=== PATIENT | male | born 1995 | race Caucasian/White ===

== ENCOUNTER 2019-02-03 07:23 | Day surgery (SDC) | payer OTHER ==
[2019-02-03] MEDS ORDERED: CEFAZOLIN 2 GM/50 ML (PMX) 50 ML IVPB (08:00)
[2019-02-03] MEDS: SOD CHLORIDE 0.9% 1,000 ML IV (08:11)
[2019-02-03] MEDS ORDERED: ONDANSETRON 4 MG INJ IV (11:30)
[2019-02-03] MEDS ORDERED: TRIMETHOBENZAMIDE 100 MG/ML VIAL IM (11:30)
[2019-02-03] MEDS ORDERED: HYDROmorphONE 1 MG/5 ML IV SYRINGE IV ×3 (11:30)
[2019-02-03] MEDS ORDERED: MIDAZOLAM 1 MG/ML 2 ML INJ IV (11:30)
[2019-02-03] MEDS ORDERED: OXYCODONE/ACETAMINOPHEN (5/325) TAB PO (11:30)
[2019-02-03] MEDS ORDERED: LABETALOL HCL 20MG INJ IV (11:30)
[2019-02-03] MEDS ORDERED: IPRATROPIUM (NEB) 0.5 MG/2.5 ML AMP HHN (11:30)
[2019-02-03] MEDS ORDERED: FENTAnyl 50 MCG/ML VIAL IV ×3 (11:30)
[2019-02-03] MEDS ORDERED: DIPHENHYDRAMINE 50 MG INJ IV (11:30)
[2019-02-03] MEDS ORDERED: EPHEDrine SULFATE 50 MG/5 ML SYG IV (11:30)
[2019-02-03] MEDS ORDERED: MEPERIDINE 25 MG INJ IV (11:30)
[2019-02-03] MEDS ORDERED: hydrALAzine 20 MG INJ IV (11:30)
[2019-02-03] MEDS ORDERED: ALBUTEROL 0.083% (NEB) 2.5 MG/3 ML AMP HHN (11:30)
[2019-02-03] MEDS ORDERED: BUPIVACAINE 0.25% (MPF) 30 ML INJ (11:37)
[2019-02-03] MEDS ORDERED: PROPOFOL 20 ML ×2 (11:42→12:52)
[2019-02-03] MEDS ORDERED: MIDAZOLAM 1 MG/ML 2 ML INJ (11:42)
[2019-02-03] MEDS ORDERED: ROCURONIUM 50 MG INJ (11:42)
[2019-02-03] MEDS ORDERED: ONDANSETRON 4 MG INJ (11:42)
[2019-02-03] MEDS ORDERED: FENTAnyl 50 MCG/ML VIAL ×2 (11:42→12:19)
[2019-02-03] MEDS ORDERED: CEFAZOLIN 1 GM INJ (11:42)
[2019-02-03] MEDS ORDERED: DEXAMETHASONE 4 MG/ML 5 ML INJ (11:42)
[2019-02-03] MEDS ORDERED: NEOSTIGMINE 3 MG/3 ML SYRINGE ×2 (11:42→12:22)
[2019-02-03] MEDS ORDERED: GLYCOPYRROLATE 0.4 MG INJ ×2 (11:42→12:22)
[2019-02-03] MEDS ORDERED: ROPIVACAINE 0.5 % 30 ML VIAL (11:46)
[2019-02-03] MEDS: POLYMYXIN/BACITRACIN 1L IRRIG (12:29)
[2019-02-03] MEDS ORDERED: KETOROLAC 30 MG INJ (12:46)
[2019-02-03] MEDS ORDERED: HYDROCODONE/APAP (5/325) TAB PO (13:00)
[2019-02-03] MEDS: OXYCODONE/ACETAMINOPHEN (5/325) TAB PO (14:00)
[2019-02-03] MEDS: HYDROmorphONE 1 MG/ML SYG IV (14:35)
== END 2019-02-03 15:25 | disposition home or self-care (01) ==
LOC: SDS 07:23
DX: K40.30 Unilateral inguinal hernia, with obstruction, without gangrene, not specified as recurrent (principal); N43.3 Hydrocele, unspecified
CPT/HCPCS: 49507; 88302